=== PATIENT | male | born 1985 | race Caucasian/White ===

== ENCOUNTER 2021-04-07 18:31 | Inpatient (IN) | payer MEDICAID ==
[~2021-04-07] VITALS: Ht 170.2 cm; Wt 59.9 kg
[2021-04-07] MEDS ORDERED: SODIUM CHLORIDE 0.9% 1,000 ML IV ONE ×2 (19:30→21:30)
[2021-04-07] MEDS ORDERED: LORAZEPAM 2MG/ML CPJ IV ONE ×3 (19:30→22:30)
[2021-04-07 20:23] LABS: BASOPHILS % 0.8 % (0.0-2.0); EOSINOPHILS % 0.2 % (0.0-5.0); HEMATOCRIT. 42.2 % (42.0-52.0); HEMOGLOBIN. 13.2 g/dL (14.0-18.0); LYMPHOCYTES % 16.9 % (20.0-50.0); MEAN CORPUSCULAR HEMOGLOBIN 31.1 pg (28.0-32.0); MEAN CORPUSCULAR VOLUME 99.6 fL (80.0-94.0); MEAN PLATELET VOLUME 9.2 fl (7.4-10.4); MONOCYTES % 12.9 % (2.0-8.0); NEUTROPHILS % 69.2 % (40.0-76.0); PLATELET 291 x1000/uL (130-400); RED BLOOD CELL COUNT 4.24 mill/uL (4.7-6.1); RED CELL DISTRIBUTION WIDTH 17.4 % (11.6-14.6)
[2021-04-07 20:36] LABS: CHLORIDE 97 mEq/L (98-107)
[2021-04-07] MEDS ORDERED: HALOPERIDOL LACTATE 5MG/ML VIAL IM ONE (21:00)
[2021-04-07] MEDS ORDERED: POTASSIUM CHLORIDE 20MEQ TABLET SR PO ONE (21:30)
[2021-04-07] MEDS ORDERED: KCL 10MEQ/50ML PREMIX 100 ML IV SCH (21:30)
[2021-04-07] MEDS ORDERED: INSULIN REGULAR (DRIP) 100 UNITS in SODIUM CHLORIDE 0.9% 99 ML IV SCH (21:30)
[2021-04-07] MEDS ORDERED: INSULIN REGULAR (HUMULIN R) 300UNITS/3ML VIAL IV ONE (21:30)
[2021-04-07] MEDS ORDERED: MANNITOL 20% (20GM/100ML) BAG 500ML PREMIX IV NR (22:30)
[2021-04-07] MEDS ORDERED: LEVETIRACETAM 1000MG PREMIX 100 ML IV ONE (22:30)
[2021-04-07 22:48] LABS: *AMPHETAMINES SCREEN URINE NEGATIVE (NEGATIVE)
[2021-04-07 22:49] LABS: *BARBITURATES SCREEN URINE NEGATIVE (NEGATIVE); *BENZODIAZEPINES SCREEN URINE NEGATIVE (NEGATIVE); *COCAINE SCREEN URINE NEGATIVE (NEGATIVE); METHADONE URINE SCREEN NEGATIVE (NEGATIVE); OPIATES URINE SCREEN NEGATIVE (NEGATIVE); PHENCYCLIDINE URINE SCREEN NEGATIVE (NEGATIVE)
[2021-04-07 22:50] LABS: CANNABINOID URINE SCREEN NEGATIVE (NEGATIVE)
[2021-04-07] MEDS ORDERED: IOHEXOL-350 100 ML BOTTLE ONE (22:58)
[2021-04-08] VITALS (12 sets, daily range): BP systolic 97–117; BP diastolic 47–69
[2021-04-08] MEDS ORDERED: INSULIN REGULAR (DRIP) 100 UNITS in SODIUM CHLORIDE 0.9% 99 ML IV ONE ×2 (02:45→06:15)
[2021-04-08] MEDS ORDERED: ONDANSETRON HCL 4MG/2ML INJ IV PRN (02:45)
[2021-04-08] MEDS ORDERED: DIPHENHYDRAMINE 50MG/ML VIAL IV PRN (02:45)
[2021-04-08] MEDS ORDERED: CLONIDINE 0.1MG TABLET PO PRN (02:45)
[2021-04-08] MEDS ORDERED: LORAZEPAM 0.5MG TABLET PO PRN (02:45)
[2021-04-08] MEDS ORDERED: ACETAMINOPHEN 325MG TABLET PO PRN ×2 (02:45)
[2021-04-08] MEDS ORDERED: LEVETIRACETAM 500 MG in SODIUM CHLORIDE 0.9% 100 ML IV SCH (02:45)
[2021-04-08] MEDS: SODIUM CHLORIDE 0.9% 1,000 ML IV SCH ×2 (03:56→10:19)
[2021-04-08] MEDS ORDERED: LEVOFLOXACIN 500MG PREMIX 100 ML IV SCH (04:00)
[2021-04-08] MEDS ORDERED: LORAZEPAM 2MG/ML CPJ IV PRN (04:45)
[2021-04-08] MEDS ORDERED: LEVETIRACETAM 500MG PREMIX 100 ML IV SCH (09:00)
[2021-04-08 09:20] LABS: CHLORIDE 115 mEq/L (98-107)
[2021-04-08] MEDS: FAMOTIDINE 20MG/2ML VIAL IV SCH ×2 (09:23→21:39)
[2021-04-08] MEDS: ENOXAPARIN 40MG/0.4ML SYR SUBCUT SCH (09:24)
[2021-04-08 09:33] LABS: PHOSPHORUS 0.4 mg/dL (2.5-4.9)
[2021-04-08] MEDS ORDERED: DEXT 5%/0.45% NACL KCL 20MEQ/L 1,000 ML IV SCH (12:00)
[2021-04-08] MEDS ORDERED: POTASSIUM PHOS,M-BASIC-D-BASIC 30 MMOL in SODIUM CHLORIDE 0.9% 500 ML IV NR (12:30)
[2021-04-08] MEDS ORDERED: SODIUM BICARBONATE 8.4% 1 MEQ/ML 50ML SYR IV NR (13:45)
[2021-04-08 14:09] LABS: BG BASE EXCESS -14.9 mmol/L (-2.0-2.0); BG CARBOXYHEMOGLOBIN 0.7 % (0.5-1.5); BG DEOXYHEMOGLOBIN 0.7 % (0.0-5.0); BG HCO3 ACT 7.5 mmol/L (22.0-26.0); BG METHEMOGLOBIN 0.4 % (0.0-1.5); BG OXYGEN SATURATION 99.3 % (92.0-98.5); BG OXYHEMOGLOBIN 98.2 % (94.0-97.0); BG PCO2 13.6 mmHg (35.0-45.0); BG PH 7.357 (7.350-7.450); BG PO2 142.3 mmHg (75.0-100.0); BG SAMPLE SITE RIGHT RADIAL; BG VENT MODE ROOM AIR
[2021-04-08 18:18] LABS: HEMATOCRIT. 36.5 % (42.0-52.0); HEMOGLOBIN. 12.5 g/dL (14.0-18.0); MEAN CORPUSCULAR VOLUME 90.8 fL (80.0-94.0); MEAN PLATELET VOLUME 8.4 fl (7.4-10.4); PLATELET 218 x1000/uL (130-400); RED BLOOD CELL COUNT 4.02 mill/uL (4.7-6.1); RED CELL DISTRIBUTION WIDTH 16.9 % (11.6-14.6)
[2021-04-08 18:22] LABS: CHLORIDE 120 mEq/L (98-107)
[2021-04-08] MEDS ORDERED: DEXTROSE 50% WATER 50ML SYRINGE IV PRN ×2 (19:00)
[2021-04-08] MEDS: BLOOD SUGAR DIAGNOSTIC STRIP TEST SCH ×5 (19:00→23:56)
[2021-04-08 19:03] LABS: PLATELET ESTIMATE NORMAL
[2021-04-08] MEDS ORDERED: POTASSIUM CHLORIDE INJ 40 MEQ in DEXT 5% WATER 250 ML IV NR (20:00)
[2021-04-08] MEDS: DEXT 5%/0.45% NACL KCL 20MEQ/L 1,000 ML IV SCH (20:59)
[2021-04-08] MEDS: INSULIN REGULAR (DRIP) 100 UNITS in SODIUM CHLORIDE 0.9% 100 ML IV SCH (21:00)
[2021-04-08] MEDS: LEVETIRACETAM 500MG PREMIX 100 ML IV SCH (21:39)
[2021-04-09] VITALS (47 sets, daily range): BP systolic 84–146; BP diastolic 39–96
[2021-04-09] MEDS: BLOOD SUGAR DIAGNOSTIC STRIP TEST SCH ×22 (00:59→23:00)
[2021-04-09] MEDS ORDERED: POTASSIUM CHLORIDE INJ 40 MEQ in DEXT 5% WATER 250 ML IV NR (02:00)
[2021-04-09] MEDS: DEXT 5%/0.45% NACL KCL 20MEQ/L 1,000 ML IV SCH ×2 (05:26→13:08)
[2021-04-09 06:16] LABS: BASOPHILS % 0.3 % (0.0-2.0); EOSINOPHILS % 0.5 % (0.0-5.0); HEMATOCRIT. 35.6 % (42.0-52.0); HEMOGLOBIN. 11.7 g/dL (14.0-18.0); LYMPHOCYTES % 11.6 % (20.0-50.0); MEAN CORPUSCULAR HEMOGLOBIN 29.9 pg (28.0-32.0); MEAN CORPUSCULAR VOLUME 90.7 fL (80.0-94.0); MEAN PLATELET VOLUME 8.9 fl (7.4-10.4); MONOCYTES % 13.7 % (2.0-8.0); NEUTROPHILS % 73.9 % (40.0-76.0); PLATELET 203 x1000/uL (130-400); RED BLOOD CELL COUNT 3.92 mill/uL (4.7-6.1)
[2021-04-09 06:20] LABS: CHLORIDE 120 mEq/L (98-107)
[2021-04-09 06:34] LABS: PHOSPHORUS 0.7 mg/dL (2.5-4.9)
[2021-04-09] MEDS: POTASSIUM CHLORIDE 20MEQ TABLET SR PO SCH ×3 (07:25→09:57)
[2021-04-09] MEDS: LEVETIRACETAM 500MG PREMIX 100 ML IV SCH ×2 (08:11→20:05)
[2021-04-09] MEDS ORDERED: POTASSIUM PHOS,M-BASIC-D-BASIC 30 MMOL in DEXT 5% WATER 500 ML IV SCH (09:00)
[2021-04-09] MEDS: FAMOTIDINE 20MG/2ML VIAL IV SCH ×2 (09:03→20:05)
[2021-04-09] MEDS: ENOXAPARIN 40MG/0.4ML SYR SUBCUT SCH (09:03)
[2021-04-09] MEDS: LEVOFLOXACIN 500MG PREMIX 100 ML IV SCH (09:56)
[2021-04-09 12:33] LABS: CHLORIDE 116 mEq/L (98-107)
[2021-04-09] MEDS ORDERED: POTASSIUM CHLORIDE 20MEQ TABLET SR PO NR ×3 (17:30→23:00)
[2021-04-09] MEDS: DEXT 5%/0.45% NACL KCL 40MEQ/L 1,000 ML IV SCH (18:17)
[2021-04-09] MEDS: INSULIN REGULAR (DRIP) 100 UNITS in SODIUM CHLORIDE 0.9% 100 ML IV SCH (18:17)
[2021-04-09 22:03] LABS: CHLORIDE 112 mEq/L (98-107)
[2021-04-09 22:03] LABS: CHLORIDE 111 mEq/L (98-107)
[2021-04-09 22:07] LABS: PHOSPHORUS 1.6 mg/dL (2.5-4.9)
[2021-04-10] VITALS (33 sets, daily range): BP systolic 81–151; BP diastolic 36–88
[2021-04-10] MEDS ORDERED: POTASSIUM PHOS,M-BASIC-D-BASIC 30 MMOL in DEXT 5% WATER 500 ML IV NR
[2021-04-10] MEDS: BLOOD SUGAR DIAGNOSTIC STRIP TEST SCH ×13 (01:12→21:00)
[2021-04-10] MEDS: DEXT 5%/0.45% NACL KCL 40MEQ/L 1,000 ML IV SCH (04:03)
[2021-04-10] MEDS: FAMOTIDINE 20MG/2ML VIAL IV SCH (08:13)
[2021-04-10] MEDS: ENOXAPARIN 40MG/0.4ML SYR SUBCUT SCH (08:14)
[2021-04-10] MEDS: LEVETIRACETAM 500MG PREMIX 100 ML IV SCH (08:14)
[2021-04-10 09:20] LABS: CHLORIDE 109 mEq/L (98-107)
[2021-04-10 09:33] LABS: PHOSPHORUS 2.4 mg/dL (2.5-4.9)
[2021-04-10] MEDS ORDERED: DEXTROSE 50% WATER 50ML SYRINGE IV PRN (10:00)
[2021-04-10] MEDS ORDERED: POTASSIUM CHLORIDE 20MEQ TABLET SR PO NR ×2 (10:30→12:30)
[2021-04-10] MEDS: LEVOFLOXACIN 500MG PREMIX 100 ML IV SCH (10:53)
[2021-04-10] MEDS: INSULIN GLARGINE UD 100 UNITS/ML SYR SUBCUT SCH (10:54)
[2021-04-10] MEDS ORDERED: POTASSIUM PHOS,M-BASIC-D-BASIC 20 MMOL in DEXT 5% WATER 243.3333 ML IV NR (11:00)
[2021-04-10] MEDS: INSULIN LISPRO 100 UNITS/ML SUBCUT SCH ×3 (12:28→21:36)
[2021-04-10] MEDS: LEVETIRACETAM 500MG TABLET PO SCH (21:32)
[2021-04-11 04:00] VITALS: BP 92/71
[2021-04-11] MEDS: BLOOD SUGAR DIAGNOSTIC STRIP TEST SCH ×3 (06:43→17:17)
[2021-04-11] MEDS: INSULIN LISPRO 100 UNITS/ML SUBCUT SCH ×3 (06:47→18:11)
[2021-04-11 07:51] LABS: HEMATOCRIT. 38.5 % (42.0-52.0); HEMOGLOBIN. 12.6 g/dL (14.0-18.0); MEAN CORPUSCULAR HEMOGLOBIN 29.7 pg (28.0-32.0); MEAN CORPUSCULAR VOLUME 90.7 fL (80.0-94.0); MEAN PLATELET VOLUME 8.9 fl (7.4-10.4); PLATELET 177 x1000/uL (130-400); RED BLOOD CELL COUNT 4.24 mill/uL (4.7-6.1); RED CELL DISTRIBUTION WIDTH 18.1 % (11.6-14.6)
[2021-04-11 08:00] VITALS: BP 103/69
[2021-04-11 08:24] LABS: CHLORIDE 103 mEq/L (98-107)
[2021-04-11 08:31] LABS: PHOSPHORUS 3.9 mg/dL (2.5-4.9)
[2021-04-11] MEDS: LEVETIRACETAM 500MG TABLET PO SCH (09:15)
[2021-04-11] MEDS: ENOXAPARIN 40MG/0.4ML SYR SUBCUT SCH (09:16)
[2021-04-11 10:20] LABS: ATYPICAL LYMPHOCYTES 1
[2021-04-11 10:21] LABS: PLATELET ESTIMATE NORMAL
[2021-04-11] MEDS: INSULIN GLARGINE UD 100 UNITS/ML SYR SUBCUT SCH ×2 (10:39→10:42)
[2021-04-11 12:00] VITALS: BP 101/62
[2021-04-11] MEDS: LEVOFLOXACIN 500MG PREMIX 100 ML IV SCH (13:07)
[2021-04-11 16:00] VITALS: BP 101/63
[2021-04-11 19:49] VITALS: BP 101/63
[2021-04-11 20:00] VITALS: BP 100/68
[2021-04-12] MEDS ORDERED: LEVOFLOXACIN 500MG TABLET PO SCH (11:00)
== END 2021-04-11 20:50 | disposition home health service (06) | DRG 52 ==
LOC: ER 18:31 → CVICU 04-08 02:48 → ENRESERV 04-08 17:10 → 6EST 04-10 16:42
PROVIDERS: ADMIT Internal Medicine; ATTEND Internal Medicine
DX: G93.41 Metabolic encephalopathy (principal); E11.10 Type 2 diabetes mellitus with ketoacidosis without coma; E83.39 Other disorders of phosphorus metabolism; E83.42 Hypomagnesemia; G40.909 Epilepsy, unspecified, not intractable, without status epilepticus; E87.1 Hypo-osmolality and hyponatremia; E87.6 Hypokalemia; R06.82 Tachypnea, not elsewhere classified; F10.10 Alcohol abuse, uncomplicated; Y90.9 Presence of alcohol in blood, level not specified; Z79.899 Other long term (current) drug therapy; Z79.4 Long term (current) use of insulin
CPT/HCPCS: 36415; 36600; 71275; 80048; 80053; 80305; 80320; 82375; 82805; 82962; 83036; 83735; 83880; 84100; 84443; 84484; 85025; 93005; 99291; J1630; J1650; J1815; J1953; J1956; J2060; J3480; J3490; J7030; J7040; J7050; J7060; Q9967; G0480